=== PATIENT | male | born 1985 | race Caucasian/White ===

== ENCOUNTER 2018-05-25 14:45 | Outpatient (CLI) | payer BC, OTHER ==
--- NOTE | 2018-05-25 16:29 | MRI ---
MRI thoracic spine with and without gadolinium contrast HISTORY: Back pain. Bulge of thoracic disc without myelopathy. FINDINGS: Vertebral body heights and alignment are maintained. Disc injury is. Bone marrow signal wit hin normal limits. Levels with abnormalities are as follows: T7-8 disc bulge with effacement of the central aspect of the thecal sac. The appearance of the spinal cord. T8-9: Left posterolateral disc protrusion with effacement of the left ventral aspect of the thecal sa c. Spinal cord has a normal appearance. T9-T10: Mild left posterolateral disc bulge with effacement of thecal sac. Spinal cord has a normal a ppearance. T11-12: Right facet hypertrophy with effacement of the posterolateral aspect of the thecal sac. Spina l cord has a normal appearance. IMPRESSION: Mild multilevel degenerative changes as detailed above. No focal disc herniation or nerve root compression. Normal appearance of the spinal cord.
== END 2018-05-25 14:46 | disposition home or self-care (01) ==
LOC: TBSIIMAG 14:45
PROVIDERS: ATTEND Family Medicine
DX: M51.24 Other intervertebral disc displacement, thoracic region (principal); M47.814 Spondylosis without myelopathy or radiculopathy, thoracic region
CPT/HCPCS: 72157

== ENCOUNTER 2018-06-09 10:10 | Outpatient (CLI) | payer BC ==
--- NOTE | 2018-06-09 10:40 | RAD ---
TWO VIEW CHEST: HISTORY: Physical examination. Dizziness. FINDINGS: Lungs are clear. Heart and mediastinum appear normal. Osseous structures are unremarkable. IMPRESSION: Unremarkable chest. POS: [facility]
== END 2018-06-09 10:11 | disposition home or self-care (01) ==
LOC: BICRAD 10:10
PROVIDERS: ATTEND Family Medicine
DX: Z00.00 Encounter for general adult medical examination without abnormal findings (principal)
CPT/HCPCS: 36415; 71046; 80053; 80061; 81001; 84443; 85025; 85652

== ENCOUNTER 2018-07-27 14:27 | Outpatient (CLI) | payer BC ==
--- NOTE | 2018-07-27 15:45 | MRI ---
Brain MRI with and without contrast: 07/27/2018 COMPARISON: None HISTORY: Dizziness TECHNIQUE: Multiplanar multisequence MR imaging of the brain obtained with and without contrast FINDINGS: The diffusion weighted imaging demonstrates no evidence for acute infarction. The axial gradient echo imaging demonstrates no evidence for intracranial hemorrhage. The imaged paranasal sinuses/mastoid air cells are grossly unremarkable. Arterial flow voids at the axial level of the skull base appear grossly unremarkable on the T2-weight ed imaging. The regional bone marrow signal intensity appears within normal limits. No focal area of abnormal intra-axial signal intensity identified on pre or postcontrast imaging. The postcontrast imaging demonstrates no abnormal enhancement within the brain parenchyma. IMPRESSION: No acute findings.
== END 2018-07-27 14:28 | disposition home or self-care (01) ==
LOC: SCSMRI 14:27
PROVIDERS: ATTEND Psychiatry & Neurology Neurology
DX: R42 Dizziness and giddiness (principal)
CPT/HCPCS: 70553